=== PATIENT | female | born 1995 | race Hispanic/Latino ===

== ENCOUNTER 2018-07-28 23:10 | Emergency (ER) | payer BC | END 2018-07-29 01:17 | disposition home or self-care (01) | LOC: ERS 23:10 | DX: S01.81XA Laceration without foreign body of other part of head, initial encounter (principal); W25.XXXA Contact with sharp glass, initial encounter; F17.210 Nicotine dependence, cigarettes, uncomplicated | CPT/HCPCS: 12013 ==